=== PATIENT | male | born 1950 | race Caucasian/White ===

== ENCOUNTER → 2022-04-08 08:39 | Outpatient (BNVA) | payer MEDICARE, SELFPAY | PROVIDERS: Family Provider Family Medicine; PCP Family Medicine; Visit Provider Surgery | DX: K40.91 Unilateral inguinal hernia, without obstruction or gangrene, recurrent (principal) | CPT/HCPCS: 99213 ==

== ENCOUNTER 2022-04-17 12:07 | Day surgery (SDC) | payer MEDICARE, SELFPAY ==
[2022-04-16 12:51] VITALS: BMI 23.2
[2022-04-17] VITALS (8 sets, daily range): BP systolic 118–182; BP diastolic 51–92; PULSE 50–78; RESP 15–22; TEMP 36.1–36.6; O2SAT 96–99
--- NOTE | 2022-04-17 12:42 | W.PM.OPSUD ---
Surgery/Procedure H&P Update DATE OF PROCEDURE: April 17, 2022 DATE H&P PERFORMED: 04/08/22 PREOP DIAGNOSIS: recurrent left inguinal hernia PLANNED PROCEDURE: Operation Date: 04/17/22 14:05 Proposed Procedures p Laparoscopic Left Inguinal Hernia Repair w/ mesh [id number] /[id number](Left) - Vito Jay DO
[2022-04-17] MEDS: sodium chloride 0.9% 1,000 ML 30 ML IV (12:51)
--- NOTE | 2022-04-17 12:51 | ANES.PREANE2 ---
Pre-Anesthetic Assessment Height/Weight: Height 1.73 m Weight 69.4 kg Temp Pulse Resp BP Pulse Ox O2 Del Method 97.8 F 50 L 16 157/91 99 04/17/22 12:19 04/17/22 12:19 04/17/22 12:19 04/17/22 12:19 04/17/22 12:19 04/17/22 12:39 Preop Diagnosis: recurrent left inguinal hernia Operation Date: 04/17/22 14:05 Proposed Procedures p Laparoscopic Left Inguinal Hernia Repair w/ mesh [id number] /k40.91(Left) - Vito Jay DO Familial anesthetic complications: none Was Beta Matilde taken within 24 hours: N/A Was Clonidine taken within 24 hours: N/A Last intake: Intake Last Liquid Date 04/17/22 Last Liquid Time 08:00 Last Solid Date 04/16/22 Last Solid Time 22:30 Social Tobacco (chews) and No alcohol Exam alert, oriented x 3, clear to auscultation bilaterally and regular rate & rhythm Airway Submandibular: within normal limits Cervical ROM: within normal limits Mallampati: Class II Dentition: chipped CV/HEM Deep Vein Thrombosis Anesthetic Plan ASA status: 2 Anesthesia: General Medications/Allergies Home Medications Medication Instructions Recorded Confirmed Last Taken Type naproxen sodium 220 mg tablet 220 mg PO BID PRN Pain 03/12/22 04/17/22 04/14/22 History (Aleve) Allergies Allergy/AdvReac Type Severity Reaction Status Date / Time No Known Allergies Allergy Verified 04/17/22 12:26 Current Medications Generic Name Dose Route Start Last Admin Trade Name Freq PRN Reason Stop Dose Admin Sodium Chloride 1,000 mls @ 30 mls/hr 04/17/22 12:30 04/17/22 12:51 Sodium Chloride 0.9% IV 04/18/22 12:29 30 mls/hr .Q24H KELLY Administration PFSH Anesthesia Surgical History History of ankle surgery Hx of inguinal hernia surgery Social History Smoking and tobacco status: former smoker Alcohol intake: never Data Anesthesia Cardiac Studies: No Data to Display
--- NOTE | 2022-04-17 13:00 | ECG_ITS ---
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 Measurements Intervals [place] Rate: 50 P: 65 IL: 167 QRS: 33 QRSD: 98 T: 59 QT: 428 QTc: 392 Interpretive Statements SINUS BRADYCARDIA WITH OCCASIONAL SUPRAVENTRICULAR PREMATURE COMPLEXES No previous ECG available for comparison Electronically Signed On 04-17-2022 19:01:57 NEGATIVE DEVELOPER by Black Cunningham M.D. [id number]
[2022-04-17] MEDS: ceFAZolin 2,000 MG in sodium chloride 0.9% (plus) 50 ML 100 MG IV (13:17)
--- NOTE | 2022-04-17 14:24 | PM.OP ---
Operative Report Date of procedure: April 17, 2022 Pre-op diagnosis: Preop Diagnosis recurrent left inguinal hernia Post-op diagnosis: same Procedure done: Laparoscopic repair of recurrent left inguinal hernia with mesh Implants: Extra-large 3D max Bard mesh Specimens removed/disposition: None Surgeon: Dr. Vito Jay DO Anesthesia: General Estimated blood loss (mL): 5 Complications: None apparent Brief History: This very pleasant 71-year-old gentleman with a recurrent left inguinal hernia. Repair with mesh was indicated. The risks and benefits were explained and documented. Procedure: Patient was wheeled into the operative room and placed on the OR table in a supine position. Abdomen was inspected prepped and draped in usual sterile fashion. Time-out was performed and all present were in agreement. A 15 blade scalpel was used to make 1.2 centimeter incision infraumbilically. Combination of sharp and blunt dissection was performed down to the anterior rectus sheath which was opened sharply. The dissecting balloon was then inserted into the space of Retzius and blown up. We put the camera into the port and identified that we were in the correct space. I then placed 2 5 millimeter trocars suprapubically in the midline. A recurrent indirect left inguinal hernia was identified. The peritoneum broke across the right inguinal mesh that was already in place and colon was visible. I then used endokitners to bluntly dissect in the space of Retzius out laterally. Blunt dissection was performed on the left to dissect down the hernia sac until the vas deferens dove medially. An extra-large left inguinal mesh was then placed into the space of Retzius. The mesh was unrolled and tacked once medially at the pubic bone. The mesh laid out nicely over the spermatic cord. The broken peritoneum on the right was then grasped and elevated and tacked back into place using a secure strap. I watched the hernia sac remained in place as insufflation was removed. Incisions were closed with 4 O Vicryl in a subcuticular interrupted fashion. Skin glue was applied. Patient tolerated the procedure well.
--- NOTE | 2022-04-17 15:10 | ANE.PACU2 ---
Inpatient post-anesthesia follow up: Airway intact: Yes Vital signs: Temperature 97.3 F Pulse Rate 76 Respiratory Rate 16 Blood Pressure 126/64 Pulse Oximetry 97 Oxygen Delivery Me thod Room Air Oxygen Flow Rate 6 Fraction of Inspir ed Oxygen Hydration adequate: Yes Nausea and vomiting: No Pain level: 3 Mental status: Baseline
[2022-04-17] MEDS: HYDROcodone-acetaminophen 7.5-325 mg Tablet 1 TAB PO (15:23)
== END 2022-04-17 15:58 | disposition home or self-care (01) ==
PROVIDERS: PCP Family Medicine; Visit Provider Surgery
PROC: (CPT 49650; principal; 2022-04-17 13:55)
DX: K40.91 Unilateral inguinal hernia, without obstruction or gangrene, recurrent (principal); F17.220 Nicotine dependence, chewing tobacco, uncomplicated; Z86.718 Personal history of other venous thrombosis and embolism
CPT/HCPCS: 49650; 93005; J0131; J0690; J1100; J2250; J2405; J2704; J2710; J3010; J3490; J7030

== ENCOUNTER → 2022-04-30 14:38 | Outpatient (BNVA) | payer MEDICARE, SELFPAY | PROVIDERS: PCP Family Medicine; Visit Provider Surgery | DX: Z98.890 Other specified postprocedural states (principal); K40.91 Unilateral inguinal hernia, without obstruction or gangrene, recurrent | CPT/HCPCS: 99024 ==

== ENCOUNTER → 2022-05-16 16:05 | Outpatient (BNVA) | payer MEDICARE, SELFPAY | PROVIDERS: PCP Family Medicine; Visit Provider Nurse Practitioner Family | DX: D69.6 Thrombocytopenia, unspecified (principal); Z13.6 Encounter for screening for cardiovascular disorders; Z68.24 Body mass index [BMI] 24.0-24.9, adult | CPT/HCPCS: 80053; 80061; 85025 ==

== ENCOUNTER 2022-06-10 06:00 | Outpatient (RCR) | payer MEDICARE, SELFPAY | END 2022-06-10 23:59 | disposition home or self-care (01) | LOC: GPT 06:00 | PROVIDERS: PCP Family Medicine; Visit Provider Nurse Practitioner Family | DX: R29.898 Other symptoms and signs involving the musculoskeletal system (principal) | CPT/HCPCS: 97162 ==

== ENCOUNTER 2022-06-11 06:00 | Outpatient (RCR) | payer MEDICARE, SELFPAY | END 2022-07-11 23:59 | disposition home or self-care (01) | LOC: GPT 06:00 | PROVIDERS: PCP Family Medicine; Visit Provider Nurse Practitioner Family | DX: R53.1 Weakness (principal) | CPT/HCPCS: 97110; 97112; 97164; 97530 ==

== ENCOUNTER 2022-07-12 06:00 | Outpatient (RCR) | payer MEDICARE, SELFPAY | END 2022-08-10 23:59 | disposition home or self-care (01) | LOC: GPT 06:00 | PROVIDERS: PCP Family Medicine; Visit Provider Nurse Practitioner Family | DX: R53.1 Weakness (principal); R29.898 Other symptoms and signs involving the musculoskeletal system | CPT/HCPCS: 97110; 97112; 97140; 97530; 97535 ==

== ENCOUNTER 2022-08-11 06:00 | Outpatient (RCR) | payer MEDICARE, SELFPAY | END 2022-09-10 23:59 | disposition home or self-care (01) | LOC: GPT 06:00 | PROVIDERS: PCP Family Medicine; Visit Provider Nurse Practitioner Family | DX: R29.898 Other symptoms and signs involving the musculoskeletal system (principal) | CPT/HCPCS: 97110; 97112; 97530 ==

== ENCOUNTER 2022-09-11 06:00 | Outpatient (RCR) | payer MEDICARE, SELFPAY | END 2022-10-10 23:59 | disposition home or self-care (01) | LOC: GPT 06:00 | PROVIDERS: PCP Family Medicine; Visit Provider Nurse Practitioner Family | DX: R29.898 Other symptoms and signs involving the musculoskeletal system (principal) | CPT/HCPCS: 97110; 97535 ==

== ENCOUNTER → 2022-10-06 09:05 | Outpatient (BNVA) | payer MEDICARE, SELFPAY | PROVIDERS: PCP Family Medicine; Visit Provider Internal Medicine Cardiovascular Disease | DX: R00.1 Bradycardia, unspecified (principal); I49.1 Atrial premature depolarization; I49.3 Ventricular premature depolarization; Z87.891 Personal history of nicotine dependence | CPT/HCPCS: 93005; 93225; 99203 ==

== ENCOUNTER → 2022-11-28 13:04 | Outpatient (BNVA) | payer MEDICARE, SELFPAY | PROVIDERS: PCP Family Medicine; Referring Provider Nurse Practitioner Family; Visit Provider Specialist | DX: G62.9 Polyneuropathy, unspecified (principal); Z86.16 Personal history of COVID-19; R29.898 Other symptoms and signs involving the musculoskeletal system; R53.1 Weakness | CPT/HCPCS: 82550; 82607; 82746; 83036; 84443; 99205 ==

== ENCOUNTER → 2023-02-23 11:58 | Outpatient (BNVA) | payer MEDICARE, SELFPAY | PROVIDERS: PCP Family Medicine; Visit Provider Specialist | DX: G61.89 Other inflammatory polyneuropathies (principal); D69.6 Thrombocytopenia, unspecified | CPT/HCPCS: 99213 ==

== ENCOUNTER → 2023-03-30 14:49 | Outpatient (BNVA) | payer MEDICARE, SELFPAY | PROVIDERS: PCP Family Medicine; Visit Provider Internal Medicine Cardiovascular Disease | DX: R00.1 Bradycardia, unspecified (principal); I49.3 Ventricular premature depolarization; I49.1 Atrial premature depolarization; Z87.891 Personal history of nicotine dependence | CPT/HCPCS: 99214 ==

== ENCOUNTER 2023-04-10 13:04 | Outpatient (CLI) | payer MEDICARE, SELFPAY ==
--- NOTE | 2023-04-10 13:30 | USCV_ITS ---
Gurdeep Gross Age: 72 Gender: M : 1950 Exam Date: 04/10/2023 13:32 Ordering Phys: Marie Zepeda MD ([email or web address]) Technologist: CT [place] [facility] [place]: pvc BP: 121 / 54 HR: 48 Rhythm: Sinus Technical Quality: Adequate MEASUREMENTS (Male / Female) Normal Values 2D ECHO LVOT Diameter 2.1 cm LV Ejection Fraction MOD 2C 44.1 % LV Ejection Fraction 2C AL 44.6 % LA Diameter 3.5 cm LA Width 3.6 cm LA Height 3.6 cm RA Width 3.1 cm RA Height 4.4 cm Aorta at Sinotubular Diameter 2.1 cm M-MODE Aortic Annulus Diameter 3.6 cm LA Ao Ratio MM 1.0 MV E Point Septal Separation 1.1 cm DOPPLER AV Peak Velocity 143.0 cm/s LVOT Peak Velocity 128.0 cm/s AV Area Cont Eq vti 2.9 cm squared AV Area Cont Eq pk 3.0 cm squared MV Peak Velocity 61.0 cm/s MV E' Velocity 10.0 cm/s TR Peak Velocity 113.0 cm/s TR Peak Gradient 5.1 mmHg TV Peak E Velocity 66.0 cm/s Right Atrial Pressure 3.0 mmHg Pulmonary Artery Systolic Pressu 8.1 mmHg PV Peak Velocity 113.0 cm/s FINDINGS Left Ventricle LV systolic function is mildly reduced with EF of 45 to 50%. Mild global hypokinesis. Right Ventricle Normal in size and function Right Atrium Normal in size Left Atrium Normal in size Mitral Valve Structurally normal mitral valve. Mild mitral regurgitation. Aortic Valve Aortic valve is thickened. No significant stenosis or regurgitation. Tricuspid Valve Trace tricuspid regurgitation. Insufficient TR jet to calculate RVSP. Pulmonic Valve Mild pulmonic regurgitation. Pericardium Normal Aorta Normal in size IVC Not well-visualized CONCLUSIONS LV systolic function is mildly reduced with EF of 45 to 50%. Mild mitral regurgitation. Trace tricuspid regurgitation Mild pulmonic regurgitation No comparison studies are available. Black Cunningham MD (Electronically Signed) Final Date: 18 April 2023 14:43 S
== END 2023-04-10 13:05 | disposition home or self-care (01) ==
LOC: RAD 13:08
PROVIDERS: PCP Family Medicine; Visit Provider Internal Medicine Cardiovascular Disease
DX: I49.3 Ventricular premature depolarization (principal); I37.1 Nonrheumatic pulmonary valve insufficiency; I34.0 Nonrheumatic mitral (valve) insufficiency
CPT/HCPCS: 93306

== ENCOUNTER → 2023-04-23 11:03 | Outpatient (BNVA) | payer MEDICARE, SELFPAY | PROVIDERS: PCP Family Medicine; Visit Provider Specialist | DX: G62.89 Other specified polyneuropathies (principal); M25.571 Pain in right ankle and joints of right foot; R29.898 Other symptoms and signs involving the musculoskeletal system | CPT/HCPCS: 95913 ==

== ENCOUNTER → 2023-05-13 11:51 | Outpatient (BNVA) | payer MEDICARE, SELFPAY | PROVIDERS: PCP Family Medicine; Visit Provider Specialist | DX: R29.898 Other symptoms and signs involving the musculoskeletal system (principal); M25.571 Pain in right ankle and joints of right foot; G62.89 Other specified polyneuropathies; G61.81 Chronic inflammatory demyelinating polyneuritis | CPT/HCPCS: 99215 ==

== ENCOUNTER 2023-05-14 08:45 | Outpatient (CLI) | payer MEDICARE, SELFPAY ==
--- NOTE | 2023-05-14 | ECG_ITS ---
[facility] Test Date: 2023-05-14 Pat Name: Gurdeep Gross Department: Room: Gender: Male Audiometric Technician: : 1950 Requested By: Liv Rodrigez Order Number: [id number] Sol MD: Black Cunningham M.D. Interpretive Statements NAME OF STUDY: EXERCISE SESTAMIBI STRESS TEST INDICATION: [Bradycardia] EXERCISE DATA: The patient was exercised by Jasiel protocol. Baseline heart rate was 48 beats per minute. Baseline blood pressure was 151/86 millimeters of mercury. Target heart rate was 126 beats per minute. Maximum heart rate achieved was 129 which was 102% of the target heart rate. Maximum blood pressure was 188/69 millimeters of mercury. Total exercise time was 5 minutes 1 seconds. Maximum METs achieved was 6.9. The reason for ending the test was target heart rate achieved. The patient complained of shortness of breath during the stress test, which then resolved at the end of the test. ELECTROCARDIOGRAM: BASELINE: Showed sinus rhythm, normal axis, no significant ST-T changes at the baseline noted. Frequent PVCs seen. [] EXERCISE: At the peak exercise level, [] No significant ST-T changes suggestive of ischemia noted. [] RECOVERY: During the recovery period, heart rate dropped appropriately. No significant ST-T changes in the recovery suggestive of ischemia noted. [] CONCLUSION: 1. Exercise capacity is fair 2. Heart rate response was normal 3. Blood pressure response was appropriate 4. Symptoms not suggestive of ischemia. 5. Electrocardiogram portion of the stress test was not suggestive of ischemia. 6. Nuclear scan will be documented separately. Electronically Signed On 05-17-2023 13:13:42 COMMUNICATION PROFESSOR by Black Cunningham M.D. [id number]
[2023-05-14 08:49] VITALS: BMI 23.8
--- NOTE | 2023-05-14 08:53 | NMCV_ITS ---
NM edna perf SPECT r/s* [id number] Gurdeep Gross Age: 72 Gender: M : 1950 Exam Date: 05/14/2023 09:52 Ordering Phys: Liv Rodrigez Technologist: YOGESH Zheng Exam Location: [facility] Indications: BRADYCARDIA STRESS TEST Please see separate stress test report in [facility] for full findings IMAGE PROTOCOL Rest/Stress 1 Exercise Day Radiopharmaceutical Dose (mCi) Administration Site Administered by Rest: Tc-99m 10.9 IV YOGESH Zheng Sestamibi Stress:Tc-99m 32.2 IV YOGESH Jenkins Sestamibi Rest: 14-May-2023 60 Discovery 630 Stress: 14-May-2023 15 Discovery 630 Radiopharmaceutical was injected at 85 % maximum heart rate. Images obtained in supine and prone position. SPECT RESULTS Technical Quality: Excellent Raw Data Analysis: Normal Image Corrections: No attenuation or motion correction applied Summed Stress Score: 0 Summed Rest Score: 7 Summed Difference Score: 0 PERFUSION FINDINGS SPECT images demonstrate homogeneous tracer distribution throughout the myocardium. FUNCTIONAL RESULTS (calculated via Gated SPECT) Stress Image LV EF (%): 64 Stress EDV (mL):98 TID: 0.97 Stress ESV (mL):35 FUNCTIONAL FINDINGS: There is normal left ventricular systolic function. IMPRESSIONS 1. Normal myocardial perfusion imaging with no evidence of ischemia 2. LV systolic fucntion is normal Black Cunningham MD (Electronically Signed) Final Date: 16 May 2023 13:44 S
[2023-05-14 11:01] VITALS: BP 134/84; PULSE 72
== END 2023-05-14 08:46 | disposition home or self-care (01) ==
PROVIDERS: PCP Family Medicine; Visit Provider Nurse Practitioner Family
DX: R00.1 Bradycardia, unspecified (principal); G61.81 Chronic inflammatory demyelinating polyneuritis; R29.898 Other symptoms and signs involving the musculoskeletal system; G62.89 Other specified polyneuropathies; H91.90 Unspecified hearing loss, unspecified ear; Z86.16 Personal history of COVID-19
CPT/HCPCS: 36415; 62270; 78452; 80503; 82945; 84157; 87070; 87075; 87205; 89050; 93017; 99212; A9500

== ENCOUNTER → 2023-06-05 13:18 | Outpatient (BNVA) | payer MEDICARE, SELFPAY | PROVIDERS: PCP Family Medicine; Visit Provider Specialist | DX: G62.89 Other specified polyneuropathies (principal); G61.81 Chronic inflammatory demyelinating polyneuritis; R29.898 Other symptoms and signs involving the musculoskeletal system | CPT/HCPCS: 99214 ==

== ENCOUNTER → 2023-09-29 13:55 | Outpatient (BNVA) | payer MEDICARE, SELFPAY | PROVIDERS: PCP Family Medicine; Visit Provider Internal Medicine Cardiovascular Disease | DX: R00.1 Bradycardia, unspecified (principal); I42.0 Dilated cardiomyopathy; I49.1 Atrial premature depolarization; I49.3 Ventricular premature depolarization; D69.6 Thrombocytopenia, unspecified; Z87.891 Personal history of nicotine dependence | CPT/HCPCS: 99214 ==

== ENCOUNTER → 2023-10-09 15:01 | Outpatient (BNVA) | payer MEDICARE, SELFPAY | PROVIDERS: PCP Family Medicine; Visit Provider Specialist | DX: G62.89 Other specified polyneuropathies (principal); G61.81 Chronic inflammatory demyelinating polyneuritis; R29.898 Other symptoms and signs involving the musculoskeletal system | CPT/HCPCS: 99214 ==

== ENCOUNTER → 2023-12-23 14:46 | Outpatient (BNVA) | payer MEDICARE, SELFPAY | PROVIDERS: PCP Family Medicine; Visit Provider Specialist | DX: G62.89 Other specified polyneuropathies (principal); G61.81 Chronic inflammatory demyelinating polyneuritis; R29.898 Other symptoms and signs involving the musculoskeletal system | CPT/HCPCS: 99214; 99215 ==

== ENCOUNTER 2024-03-16 08:00 | Oncology outpatient (recurring) (ONCR) | payer MEDICARE, SELFPAY ==
[2024-03-14 08:04] VITALS: BP 127/73; PULSE 52; RESP 16; TEMP 36.3; O2SAT 99
[2024-03-14] MEDS: acetaminophen 325 mg Tablet 650 MG PO (08:19)
[2024-03-14] MEDS: diphenhydrAMINE 50 mg/mL SDV 1mL 25 MG IVP (08:20)
[2024-03-14] MEDS: Immune Globulin (Gamunex-C) 20 GM, immune globulin (Gamunex-C) 10 GM in empty flexible ... IV (09:17)
[2024-03-14 09:35] VITALS: BP 145/70; PULSE 42; RESP 16; TEMP 36.6; O2SAT 96
[2024-03-14 09:50] VITALS: BP 120/69; PULSE 44; RESP 16; TEMP 36.3; O2SAT 98
[2024-03-14 10:10] VITALS: BP 145/72; PULSE 44; RESP 16; TEMP 36.3; O2SAT 98
[2024-03-14 12:15] VITALS: BP 131/65; PULSE 46; RESP 16; TEMP 36.9; O2SAT 98
[2024-03-15] VITALS (10 sets, daily range): BP systolic 105–157; BP diastolic 70–87; PULSE 40–98; RESP 16–18; TEMP 35.8–36.6; O2SAT 98–100
[2024-03-15] MEDS: acetaminophen 325 mg Tablet 650 MG PO (08:33)
[2024-03-15] MEDS: diphenhydrAMINE 50 mg/mL SDV 1mL 25 MG IVP (08:36)
[2024-03-15] MEDS: Immune Globulin (Gamunex-C) 20 GM, immune globulin (Gamunex-C) 10 GM in empty flexible ... IV (09:01)
[2024-03-16] VITALS (9 sets, daily range): BP systolic 112–150; BP diastolic 59–77; PULSE 40–57; RESP 16–17; TEMP 36.2–36.6; O2SAT 96–99
[2024-03-16] MEDS: diphenhydrAMINE 50 mg/mL SDV 1mL 25 MG IVP (08:10)
[2024-03-16] MEDS: acetaminophen 325 mg Tablet 650 MG PO (08:10)
[2024-03-16] MEDS: Immune Globulin (Gamunex-C) 20 GM, immune globulin (Gamunex-C) 10 GM in empty flexible ... IV (08:57)
== END 2024-03-16 23:59 | disposition home or self-care (01) ==
PROVIDERS: PCP Family Medicine; Visit Provider Specialist
DX: G61.81 Chronic inflammatory demyelinating polyneuritis (principal); Z79.899 Other long term (current) drug therapy; Z53.9 Procedure and treatment not carried out, unspecified reason
CPT/HCPCS: 96365; 96366; 96375; J1200; J1561

== ENCOUNTER → 2024-03-29 13:04 | Outpatient (BNVA) | payer MEDICARE, SELFPAY | PROVIDERS: PCP Family Medicine; Visit Provider Specialist | DX: G62.89 Other specified polyneuropathies (principal); G61.81 Chronic inflammatory demyelinating polyneuritis; R29.898 Other symptoms and signs involving the musculoskeletal system | CPT/HCPCS: 99214 ==

== ENCOUNTER 2024-04-11 08:00 | Oncology outpatient (recurring) (ONCR) | payer MEDICARE, SELFPAY ==
[2024-03-17] VITALS (9 sets, daily range): BP systolic 116–143; BP diastolic 63–80; PULSE 45–54; RESP 16; TEMP 36.2–36.5; O2SAT 94–98
[2024-03-17] MEDS: acetaminophen 325 mg Tablet 650 MG PO (11:37)
[2024-03-17] MEDS: diphenhydrAMINE 50 mg/mL SDV 1mL 25 MG IVP (11:38)
[2024-03-17] MEDS: Immune Globulin (Gamunex-C) 20 GM, immune globulin (Gamunex-C) 10 GM in empty flexible ... IV (12:17)
[2024-03-18] VITALS (9 sets, daily range): BP systolic 145–159; BP diastolic 70–90; PULSE 41–61; RESP 16; TEMP 36–36.6; O2SAT 95–100
[2024-03-18] MEDS: acetaminophen 325 mg Tablet 650 MG PO (08:10)
[2024-03-18] MEDS: diphenhydrAMINE 50 mg/mL SDV 1mL 25 MG IVP (08:12)
[2024-03-18] MEDS: Immune Globulin (Gamunex-C) 20 GM, immune globulin (Gamunex-C) 10 GM in empty flexible ... IV (08:55)
[2024-04-11 07:45] VITALS: BP 126/72; PULSE 50; RESP 16; TEMP 36; O2SAT 98
[2024-04-11] MEDS: acetaminophen 325 mg Tablet 650 MG PO (08:34)
[2024-04-11] MEDS: diphenhydrAMINE 50 mg/mL SDV 1mL 25 MG IVP (08:37)
[2024-04-11] MEDS: immune globulin (Gamunex-C) 40 GM, Immune Globulin (Gamunex-C) 20 GM, immune globulin (... IV (09:35)
[2024-04-11 10:00] VITALS: BP 118/71; PULSE 42; RESP 15; TEMP 36.4; O2SAT 98
[2024-04-11 10:15] VITALS: BP 128/73; PULSE 42; RESP 15; TEMP 36.4; O2SAT 98
[2024-04-11 10:59] VITALS: BP 125/73; PULSE 43; RESP 15; TEMP 36.3; O2SAT 100
[2024-04-11 11:32] VITALS: BP 125/70; PULSE 44; RESP 16; TEMP 36.6; O2SAT 99
[2024-04-11 13:14] VITALS: BP 110/63; PULSE 48; RESP 16; TEMP 36.4; O2SAT 95
== END 2024-04-12 23:59 | disposition home or self-care (01) ==
PROVIDERS: PCP Family Medicine; Visit Provider Specialist
DX: Z53.9 Procedure and treatment not carried out, unspecified reason (principal); G61.81 Chronic inflammatory demyelinating polyneuritis; Z79.899 Other long term (current) drug therapy
CPT/HCPCS: 96365; 96366; 96375; J1200; J1561

== ENCOUNTER → 2024-04-14 15:18 | Outpatient (BNVA) | payer MEDICARE, SELFPAY | PROVIDERS: PCP Family Medicine; Visit Provider Internal Medicine Cardiovascular Disease | DX: R00.1 Bradycardia, unspecified (principal); I49.1 Atrial premature depolarization; I49.3 Ventricular premature depolarization; D69.6 Thrombocytopenia, unspecified; I42.0 Dilated cardiomyopathy; Z87.891 Personal history of nicotine dependence | CPT/HCPCS: 99214 ==

== ENCOUNTER 2024-05-02 07:50 | Oncology outpatient (recurring) (ONCR) | payer MEDICARE, SELFPAY ==
[2024-05-02 08:03] VITALS: BP 142/70; PULSE 50; RESP 16; TEMP 36.8; O2SAT 99
[2024-05-02] MEDS: acetaminophen 325 mg Tablet 650 MG PO (08:42)
[2024-05-02] MEDS: diphenhydrAMINE 50 mg/mL SDV 1mL 25 MG IVP (08:43)
[2024-05-02] MEDS: sodium chloride 0.9% 250 ML 20 ML IV (08:49)
[2024-05-02 09:24] VITALS: BP 119/76; PULSE 45; RESP 16; TEMP 36.1; O2SAT 100
[2024-05-02] MEDS: immune globulin (Gamunex-C) 40 GM, Immune Globulin (Gamunex-C) 20 GM, immune globulin (... IV (09:24)
[2024-05-02 09:41] VITALS: BP 130/73; PULSE 42; RESP 16; TEMP 36.1; O2SAT 99
[2024-05-02 09:56] VITALS: BP 151/72; PULSE 42; RESP 16; TEMP 35.8; O2SAT 100
[2024-05-02 11:01] VITALS: BP 163/91; PULSE 57; RESP 16; TEMP 35.6
[2024-05-02 12:55] VITALS: BP 137/76; PULSE 55; RESP 16; TEMP 35.5; O2SAT 96
== END 2024-05-02 23:59 | disposition home or self-care (01) ==
PROVIDERS: PCP Family Medicine; Visit Provider Specialist
DX: G61.81 Chronic inflammatory demyelinating polyneuritis; Z79.899 Other long term (current) drug therapy
CPT/HCPCS: 96365; 96366; 96375; J1200; J1561; J7050

== ENCOUNTER 2024-05-23 07:59 | Oncology outpatient (recurring) (ONCR) | payer MEDICARE, SELFPAY ==
[2024-05-23 08:10] VITALS: BP 121/67; PULSE 59; RESP 17; TEMP 36.8; O2SAT 98
[2024-05-23] MEDS: acetaminophen 325 mg Tablet 650 MG PO (08:31)
[2024-05-23] MEDS: diphenhydrAMINE 50 mg/mL SDV 1mL 25 MG IVP (08:32)
[2024-05-23] MEDS: immune globulin (Gamunex-C) 40 GM, Immune Globulin (Gamunex-C) 20 GM, immune globulin (... IV (08:54)
[2024-05-23 12:40] VITALS: BP 122/77; PULSE 51; RESP 16; TEMP 36.1; O2SAT 97
== END 2024-05-23 23:59 | disposition home or self-care (01) ==
LOC: ONCMED 07:59
PROVIDERS: PCP Family Medicine; Visit Provider Specialist
DX: G61.81 Chronic inflammatory demyelinating polyneuritis (principal); Z79.899 Other long term (current) drug therapy
CPT/HCPCS: 96365; 96366; 96375; J1200; J1561

== ENCOUNTER → 2024-06-23 09:30 | Outpatient (BNVA) | payer MEDICARE, SELFPAY | PROVIDERS: PCP Family Medicine; Visit Provider Family Medicine | DX: I42.0 Dilated cardiomyopathy (principal) | CPT/HCPCS: 85025 ==

== ENCOUNTER 2024-06-30 08:06 | Oncology outpatient (recurring) (ONCR) | payer MEDICARE, SELFPAY ==
[2024-06-30] MEDS: acetaminophen 325 mg Tablet 650 MG PO (08:48)
[2024-06-30] MEDS: diphenhydrAMINE 50 mg/mL SDV 1mL 25 MG IVP (08:49)
[2024-06-30 08:53] VITALS: BP 124/78; PULSE 78; RESP 18; TEMP 36.6; O2SAT 98
[2024-06-30] MEDS: immune globulin (Gamunex-C) 40 GM, Immune Globulin (Gamunex-C) 20 GM, immune globulin (... IV (09:32)
[2024-06-30 09:50] VITALS: BP 119/68; PULSE 42; RESP 18; TEMP 36.4; O2SAT 95
[2024-06-30 12:45] VITALS: BP 112/57; PULSE 43; RESP 18; TEMP 36.6; O2SAT 97
== END 2024-06-30 23:59 | disposition home or self-care (01) ==
PROVIDERS: PCP Family Medicine; Visit Provider Specialist
DX: G61.81 Chronic inflammatory demyelinating polyneuritis (principal); Z79.899 Other long term (current) drug therapy
CPT/HCPCS: 96365; 96366; J1200; J1561; J9999

== ENCOUNTER 2024-07-21 08:04 | Oncology outpatient (recurring) (ONCR) | payer MEDICARE, SELFPAY ==
[2024-07-21] MEDS: acetaminophen 325 mg Tablet 650 MG PO (08:58)
[2024-07-21] MEDS: diphenhydrAMINE 50 mg/mL SDV 1mL 25 MG IVP (08:59)
[2024-07-21 09:45] VITALS: BP 114/66; PULSE 62; RESP 16; TEMP 36.1; O2SAT 96
[2024-07-21] MEDS: immune globulin (Gamunex-C) 40 GM, Immune Globulin (Gamunex-C) 20 GM, immune globulin (... IV (09:45)
[2024-07-21 10:37] VITALS: BP 119/71; PULSE 42; RESP 16; TEMP 36.1; O2SAT 98
[2024-07-21 11:50] VITALS: BP 120/69; PULSE 67; RESP 16; TEMP 36; O2SAT 99
[2024-07-21 13:28] VITALS: BP 104/65; PULSE 79; RESP 16; TEMP 37; O2SAT 99
== END 2024-07-21 23:59 | disposition home or self-care (01) ==
PROVIDERS: PCP Family Medicine; Visit Provider Specialist
DX: G61.81 Chronic inflammatory demyelinating polyneuritis (principal); Z79.899 Other long term (current) drug therapy
CPT/HCPCS: 96365; 96366; 96375; J1200; J1561; J9999

== ENCOUNTER 2024-08-11 08:05 | Oncology outpatient (recurring) (ONCR) | payer MEDICARE, SELFPAY ==
[2024-08-11] MEDS: acetaminophen 325 mg Tablet 650 MG PO (08:54)
[2024-08-11] MEDS: diphenhydrAMINE 50 mg/mL SDV 1mL 25 MG IVP (08:54)
[2024-08-11] MEDS: immune globulin (Gamunex-C) 40 GM, Immune Globulin (Gamunex-C) 20 GM, immune globulin (... IV (09:10)
[2024-08-11 12:32] VITALS: RESP 16; TEMP 36.3; O2SAT 99
== END 2024-08-11 23:59 | disposition home or self-care (01) ==
PROVIDERS: PCP Family Medicine; Visit Provider Specialist
DX: G61.81 Chronic inflammatory demyelinating polyneuritis (principal); Z79.899 Other long term (current) drug therapy
CPT/HCPCS: 96365; 96366; 96375; J1200; J1561; J9999

== ENCOUNTER → 2024-08-16 11:43 | Outpatient (BNVA) | payer MEDICARE, SELFPAY | PROVIDERS: PCP Family Medicine; Visit Provider Specialist | DX: G62.89 Other specified polyneuropathies (principal); G61.81 Chronic inflammatory demyelinating polyneuritis; R29.898 Other symptoms and signs involving the musculoskeletal system | CPT/HCPCS: 99213 ==

== ENCOUNTER 2024-09-22 08:04 | Oncology outpatient (recurring) (ONCR) | payer MEDICARE, SELFPAY ==
[2024-09-22] MEDS: sodium chloride 0.9% 250 ML 75 ML IV (09:00)
[2024-09-22] MEDS: diphenhydrAMINE 50 mg/mL SDV 1mL 25 MG IVP (09:03)
[2024-09-22] MEDS: acetaminophen 325 mg Tablet 650 MG PO (09:05)
[2024-09-22] MEDS: immune globulin (Gamunex-C) 40 GM, Immune Globulin (Gamunex-C) 20 GM, immune globulin (... IV (10:03)
[2024-09-22 10:06] VITALS: BP 124/69; PULSE 38; RESP 18; TEMP 36.6; O2SAT 98
[2024-09-22 10:50] VITALS: BP 142/71; PULSE 78; RESP 16; TEMP 36.3; O2SAT 98
[2024-09-22 13:30] VITALS: BP 127/57; PULSE 59; RESP 16; TEMP 36.1; O2SAT 99
[2024-09-22 17:07] VITALS: BP 127/60; PULSE 57; RESP 16; TEMP 36.1; O2SAT 99
== END 2024-09-22 23:59 | disposition home or self-care (01) ==
PROVIDERS: PCP Family Medicine; Visit Provider Specialist
DX: G61.81 Chronic inflammatory demyelinating polyneuritis (principal); Z79.899 Other long term (current) drug therapy
CPT/HCPCS: 96365; 96366; J1200; J1561; J7050; J9999

== ENCOUNTER 2024-10-13 09:07 | Oncology outpatient (recurring) (ONCR) | payer MEDICARE, SELFPAY ==
[2024-10-13] MEDS: diphenhydrAMINE 50 mg/mL SDV 1mL 25 MG IVP (09:45)
[2024-10-13 10:30] VITALS: BP 125/74; PULSE 40; RESP 16; TEMP 36; O2SAT 99
[2024-10-13] MEDS: immune globulin (Gamunex-C) 40 GM, Immune Globulin (Gamunex-C) 20 GM, immune globulin (... IV (10:30)
[2024-10-13 11:00] VITALS: BP 124/62; PULSE 40; RESP 16; TEMP 36.2; O2SAT 99
[2024-10-13 11:15] VITALS: BP 122/64; PULSE 40; RESP 16; TEMP 36.2; O2SAT 99
[2024-10-13 14:07] VITALS: BP 110/66; PULSE 43; O2SAT 100
== END 2024-10-17 09:59 | disposition home or self-care (01) ==
PROVIDERS: PCP Family Medicine; Visit Provider Specialist
DX: G61.81 Chronic inflammatory demyelinating polyneuritis (principal); Z79.620 Long term (current) use of immunosuppressive biologic; Z79.899 Other long term (current) drug therapy
CPT/HCPCS: 96365; 96366; J1200; J1561; J7050; J9999

== ENCOUNTER 2024-11-03 09:02 | Oncology outpatient (recurring) (ONCR) | payer MEDICARE, SELFPAY ==
[2024-11-03] MEDS: diphenhydrAMINE 50 mg/mL SDV 1mL 25 MG IVP (10:26)
[2024-11-03] MEDS: immune globulin (Gamunex-C) 40 GM, Immune Globulin (Gamunex-C) 20 GM, immune globulin (... IV (10:53)
[2024-11-03 10:54] VITALS: BP 128/65; PULSE 39; RESP 16; TEMP 36.2; O2SAT 98
[2024-11-03 11:10] VITALS: BP 120/65; PULSE 40; RESP 16; TEMP 36.4; O2SAT 99
[2024-11-03 11:58] VITALS: BP 119/69; PULSE 39; RESP 16; TEMP 36.1; O2SAT 99
[2024-11-03 12:55] VITALS: BP 123/68; PULSE 40; RESP 17; TEMP 36.6; O2SAT 99
[2024-11-03 14:46] VITALS: BP 116/56; PULSE 40; RESP 16; TEMP 36.7; O2SAT 98
== END 2024-11-03 23:59 | disposition home or self-care (01) ==
PROVIDERS: PCP Family Medicine; Visit Provider Specialist
DX: G61.81 Chronic inflammatory demyelinating polyneuritis (principal); Z79.899 Other long term (current) drug therapy
CPT/HCPCS: 96365; 96366; 96375; J1200; J1561; J9999

== ENCOUNTER 2024-11-24 09:10 | Oncology outpatient (recurring) (ONCR) | payer MEDICARE, SELFPAY ==
[2024-11-24 09:37] VITALS: BP 155/70; PULSE 49; TEMP 36.2; O2SAT 99
[2024-11-24] MEDS: diphenhydrAMINE 50 mg/mL SDV 1mL 25 MG IVP (10:25)
[2024-11-24 11:20] VITALS: BP 121/73; PULSE 38; RESP 16; TEMP 35.9
[2024-11-24] MEDS: immune globulin (Gamunex-C) 40 GM, Immune Globulin (Gamunex-C) 20 GM, immune globulin (... IV (11:20)
[2024-11-24 11:35] VITALS: BP 126/71; PULSE 44; RESP 16; TEMP 36.1; O2SAT 99
[2024-11-24 13:15] VITALS: BP 101/65; PULSE 43; RESP 16; TEMP 35.9; O2SAT 99
[2024-11-24 14:51] VITALS: BP 122/66; PULSE 48; TEMP 36.1; O2SAT 98
== END 2024-11-24 23:59 | disposition home or self-care (01) ==
PROVIDERS: PCP Family Medicine; Visit Provider Specialist
DX: G61.81 Chronic inflammatory demyelinating polyneuritis (principal); Z79.899 Other long term (current) drug therapy; Z79.620 Long term (current) use of immunosuppressive biologic
CPT/HCPCS: 96365; 96366; 96375; J1200; J1561; J7050; J9999

== ENCOUNTER 2024-12-15 09:03 | Oncology outpatient (recurring) (ONCR) | payer MEDICARE, SELFPAY ==
[2024-12-15 10:48] VITALS: BP 118/70; PULSE 39; RESP 18; TEMP 36.3; O2SAT 98
[2024-12-15] MEDS: immune globulin (Gamunex-C) 40 GM, Immune Globulin (Gamunex-C) 20 GM, immune globulin (... IV (10:48)
[2024-12-15 11:49] VITALS: BP 145/80; PULSE 38; RESP 16; TEMP 35.9; O2SAT 96
[2024-12-15 12:35] VITALS: BP 132/73; PULSE 38; RESP 18; TEMP 36; O2SAT 97
[2024-12-15 14:23] VITALS: BP 111/58; PULSE 48; RESP 17; TEMP 36; O2SAT 97
== END 2024-12-15 23:59 | disposition home or self-care (01) ==
LOC: ONCMED 09:04
PROVIDERS: PCP Family Medicine; Visit Provider Specialist
DX: G61.81 Chronic inflammatory demyelinating polyneuritis (principal); Z79.899 Other long term (current) drug therapy
CPT/HCPCS: 96365; 96366; J1561; J7050; J9999

== ENCOUNTER 2025-01-05 09:01 | Oncology outpatient (recurring) (ONCR) | payer MEDICARE, SELFPAY ==
[2025-01-05 09:20] VITALS: BP 137/75; PULSE 45; RESP 18; TEMP 36.6; O2SAT 98
[2025-01-05] MEDS: immune globulin (Gamunex-C) 40 GM, Immune Globulin (Gamunex-C) 20 GM, immune globulin (... IV (09:47)
[2025-01-05 10:18] VITALS: BP 116/68; PULSE 43; RESP 16; TEMP 36.3; O2SAT 96
[2025-01-05 11:36] VITALS: BP 118/72; PULSE 41; RESP 16; TEMP 36.3; O2SAT 99
[2025-01-05 13:15] VITALS: BP 126/68; PULSE 40; RESP 16; TEMP 36.3; O2SAT 99
[2025-01-05 13:25] VITALS: BP 123/68; PULSE 40; RESP 16; TEMP 36.3; O2SAT 99
== END 2025-01-05 23:59 | disposition home or self-care (01) ==
PROVIDERS: PCP Family Medicine; Visit Provider Specialist
DX: G61.81 Chronic inflammatory demyelinating polyneuritis (principal); Z79.899 Other long term (current) drug therapy; Z79.620 Long term (current) use of immunosuppressive biologic
CPT/HCPCS: 96365; 96366; J1561; J9999

== ENCOUNTER 2025-01-26 09:05 | Oncology outpatient (recurring) (ONCR) | payer MEDICARE, SELFPAY ==
[2025-01-26 09:52] VITALS: BP 112/67; PULSE 48; RESP 16; TEMP 36.8; O2SAT 98
[2025-01-26] MEDS: immune globulin (Gamunex-C) 40 GM, Immune Globulin (Gamunex-C) 20 GM, immune globulin (... IV (09:52)
[2025-01-26 10:07] VITALS: BP 113/63; PULSE 42; RESP 16; TEMP 36.7; O2SAT 96
[2025-01-26 13:32] VITALS: BP 117/70; PULSE 55; RESP 17; TEMP 36.1; O2SAT 99
== END 2025-01-26 23:59 | disposition home or self-care (01) ==
LOC: ONCMED 09:05
PROVIDERS: PCP Family Medicine; Visit Provider Specialist
DX: G61.81 Chronic inflammatory demyelinating polyneuritis (principal); Z79.899 Other long term (current) drug therapy; Z79.620 Long term (current) use of immunosuppressive biologic
CPT/HCPCS: 96365; 96366; J1561; J9999

== ENCOUNTER → 2025-02-15 11:35 | Outpatient (BNVA) | payer MEDICARE, SELFPAY | PROVIDERS: PCP Family Medicine; Visit Provider Specialist | DX: G62.89 Other specified polyneuropathies (principal); G61.81 Chronic inflammatory demyelinating polyneuritis; R29.898 Other symptoms and signs involving the musculoskeletal system; R03.0 Elevated blood-pressure reading, without diagnosis of hypertension | CPT/HCPCS: 99215 ==

== ENCOUNTER 2025-02-23 09:02 | Oncology outpatient (recurring) (ONCR) | payer MEDICARE, SELFPAY ==
[2025-02-23 10:15] VITALS: BP 108/63; PULSE 50; RESP 16; TEMP 36.6; O2SAT 97
[2025-02-23] MEDS: immune globulin (Gamunex-C) 40 GM, Immune Globulin (Gamunex-C) 20 GM, immune globulin (... IV (10:15)
[2025-02-23 11:18] VITALS: BP 118/64; PULSE 51; RESP 16; TEMP 36; O2SAT 98
[2025-02-23 13:47] VITALS: BP 103/66; PULSE 50; RESP 18; TEMP 35.8; O2SAT 98
== END 2025-02-23 23:59 | disposition home or self-care (01) ==
PROVIDERS: PCP Family Medicine; Visit Provider Specialist
DX: G61.81 Chronic inflammatory demyelinating polyneuritis (principal); Z79.899 Other long term (current) drug therapy; Z79.620 Long term (current) use of immunosuppressive biologic
CPT/HCPCS: 96365; 96366; J1561; J9999

== ENCOUNTER → 2025-03-15 14:14 | Outpatient (BNVA) | payer MEDICARE, SELFPAY | PROVIDERS: PCP Family Medicine; Visit Provider Internal Medicine Cardiovascular Disease | DX: I42.0 Dilated cardiomyopathy (principal); R00.1 Bradycardia, unspecified; I49.3 Ventricular premature depolarization; I49.1 Atrial premature depolarization; D69.6 Thrombocytopenia, unspecified; G63 Polyneuropathy in diseases classified elsewhere; F17.220 Nicotine dependence, chewing tobacco, uncomplicated | CPT/HCPCS: 99214 ==

== ENCOUNTER 2025-03-16 09:04 | Oncology outpatient (recurring) (ONCR) | payer MEDICARE, SELFPAY ==
[2025-03-16 10:12] VITALS: BP 122/73; PULSE 47; RESP 17; TEMP 36.6; O2SAT 99
[2025-03-16 10:40] VITALS: BP 122/73; PULSE 47; RESP 17; TEMP 36.5; O2SAT 99
[2025-03-16] MEDS: immune globulin (Gamunex-C) 40 GM, Immune Globulin (Gamunex-C) 20 GM, immune globulin (... IV (10:40)
[2025-03-16 10:56] VITALS: BP 123/71; PULSE 44; RESP 17; TEMP 36.3; O2SAT 98
[2025-03-16 12:00] VITALS: BP 125/69; PULSE 47; RESP 17; TEMP 36.2; O2SAT 99
[2025-03-16 12:30] VITALS: BP 130/71; PULSE 45; RESP 17; TEMP 36.6; O2SAT 99
== END 2025-03-16 23:59 | disposition home or self-care (01) ==
LOC: ONCMED 09:05
PROVIDERS: PCP Family Medicine; Visit Provider Specialist
DX: G61.81 Chronic inflammatory demyelinating polyneuritis (principal); Z79.899 Other long term (current) drug therapy
CPT/HCPCS: 96365; 96366; 96375; J1561; J9999